=== PATIENT | male | born 1980 | race Two or more races ===

== ENCOUNTER 2025-04-14 08:31 | Emergency (ER) | payer SELFPAY ==
[~2025-04-14] VITALS: Ht 172.7 cm; Wt 107.0 kg
[2025-04-14 08:40] VITALS: PULSE 0; RESP 0; O2SAT 0
[2025-04-14 08:43] VITALS: TEMP 96.4
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
== END 2025-04-14 09:02 ==
LOC: ER 08:31 → EDBD 08:31 → ER 09:02
DX: I46.9 Cardiac arrest, cause unspecified (principal)
CPT/HCPCS: 31500; 82947; 92950; 99291